=== PATIENT | female | born 2000 | race Two or more races ===

== ENCOUNTER 2022-06-06 06:14 | Inpatient (IN) | payer OTHER ==
[~2022-06-06] VITALS: Ht 167.6 cm; Wt 88.5 kg
[2022-06-06] MEDS ORDERED: PRENATAL + DHA1 EAC1 PO (07:44)
== END 2022-06-09 13:17 | disposition home or self-care (01) | DRG 788 ==
LOC: OB/GYN 06:14 → LDR 06:14 → O/R 19:54 → OB/GYN 22:06
PROVIDERS: ADMIT Obstetrics & Gynecology Obstetrics; ATTEND Obstetrics & Gynecology Obstetrics
PROC: 3E033VJ Introduction of Other Hormone into Peripheral Vein, Percutaneous Approach (ICD-10-PCS; 2022-06-06)
PROC: 3E0P7VZ Introduction of Hormone into Female Reproductive, Via Natural or Artificial Opening (ICD-10-PCS; 2022-06-06)
PROC: 4A1HXCZ Monitoring of Products of Conception, Cardiac Rate, External Approach (ICD-10-PCS; 2022-06-06)
PROC: 10D00Z1 Extraction of Products of Conception, Low, Open Approach (ICD-10-PCS; principal; 2022-06-06 18:00)
DX: O62.0 Primary inadequate contractions (principal); O36.8130 Decreased fetal movements, third trimester, not applicable or unspecified; Z3A.40 40 weeks gestation of pregnancy; Z37.0 Single live birth; Z20.822 Contact with and (suspected) exposure to COVID-19